=== PATIENT | male | born 1950 | race Caucasian/White ===

== ENCOUNTER 2024-08-27 12:30 | Outpatient (CLI) | payer OTHER, SELFPAY | END 2024-08-27 12:31 | disposition home or self-care (01) | PROVIDERS: Visit Provider Family Medicine | DX: I10 Essential (primary) hypertension (principal); Z12.5 Encounter for screening for malignant neoplasm of prostate | CPT/HCPCS: 80053; G0103 ==

== ENCOUNTER 2024-10-17 08:53 | Outpatient (CLI) | payer OTHER, SELFPAY ==
--- NOTE | 2024-10-17 09:15 | CRLHL7_ITS ---
For Patients: As a result of the Century Cures Act, medical imaging exams and procedure reports are released immediately into your electronic medical record. You may view this report before your referring provider. If you have questions, please contact your health care provider. INDICATION: Spinal stenosis. Urinary symptoms. COMPARISON: 01/06/2023. TECHNIQUE: Sagittal T1, T2, and STIR sequences. Axial T1 and T2 weighted sequences. FINDINGS: Normal vertebral body alignment. No fractures. No vertebral body loss of height. No spondylolisthesis. No ligamentous injury. Normal marrow signal. No suspicious osseous lesions. Normal conus terminates at L1. Congenitally short pedicles contributes to overall narrowed caliber of the spinal canal. T12-L1 L1-2: No spinal canal or neural foraminal narrowing. L2-3: Disc degeneration loss disc height. Posterior disc bulge and mild narrowing of spinal canal. No neural foraminal narrowing. L3-4: Disc degeneration loss disc height. Posterior disc bulge. Moderate narrowing of spinal canal. Mild right and moderate left neural foraminal narrowing. Mild facet arthropathy. L4-5: Disc degeneration and loss disc height. Posterior disc bulge. Mature postoperative changes of left hemilaminectomy. No narrowing of spinal canal. No impingement of the traversing S1 nerve roots. Mild narrowing of bilateral foramina. L5-S1: Posterior disc bulge. Tapered narrowing of thecal sac to the prominence of the epidural fat. No impingement of the traversing S1 nerve roots. Mild narrowing of the left neural foramen. No narrowing of the right neural foramen. Mild facet arthropathy. Normal visualized SI joints. Normal paraspinal soft tissues. IMPRESSION: 1. Normal alignment. No fractures. 2. Congenitally short pedicles 3. Lumbar spondylosis. 4. At L3-4, moderate narrowing of the spinal canal left neural foramina 5. Mild narrowing of the neural foramina at L4-5 and L5-S1 is described above. Dictated by Geovanny De Leon MD @ 10/18/2024 7:33:46 AM (Electronically Signed)
== END 2024-10-17 08:54 | disposition home or self-care (01) ==
LOC: MRI 08:55
PROVIDERS: PCP Family Medicine; Visit Provider Family Medicine
DX: M48.00 Spinal stenosis, site unspecified (principal); M47.896 Other spondylosis, lumbar region; M51.26 Other intervertebral disc displacement, lumbar region; M51.27 Other intervertebral disc displacement, lumbosacral region
CPT/HCPCS: 72148

== ENCOUNTER 2024-12-20 10:24 | Outpatient (CLI) | payer OTHER, SELFPAY | END 2024-12-20 10:25 | disposition home or self-care (01) | LOC: NFLDREF 12-21 07:55 | PROVIDERS: PCP Family Medicine; Referring Provider Family Medicine; Visit Provider Family Medicine | DX: E87.6 Hypokalemia (principal) | CPT/HCPCS: 80048 ==

== ENCOUNTER 2025-01-14 07:07 | Outpatient (CLI) | payer OTHER, SELFPAY ==
--- NOTE | 2025-01-14 08:56 | P.ANES_ITS ---
Anesthesia Charges Start Date/Time Anesthesia Start Date: 01/14/25 Anesthesia Start Time: 08:07 Stop Date/Time Anesthesia Stop Date: 01/14/25 Anesthesia Stop Time: 08:55 Summary Extremes of Age - Over 70 or under 1: TILTROTOR CREW CHIEF Coding CPT Codes CPT Codes: ANES LWR INTST NDSC NOS - 47377 ([id number]) P3 - PATIENT W/SEVERE SYS DISEASE, QK - SCRUM PRODUCT OWNER 2-4 CNCRNT ANES PROC, QX - TILTROTOR CREW CHIEF SVC W/ MD MED DIRECTION Additional Codes: Summary - Extremes of Age - Over 70 or under 1: TILTROTOR CREW CHIEF ([id number])
--- NOTE | 2025-01-14 08:56 | W.ANESCHARGE ---
Anesthesia Charges Start Date/Time Anesthesia Start Date: 01/14/25 Anesthesia Start Time: 08:07 Stop Date/Time Anesthesia Stop Date: 01/14/25 Anesthesia Stop Time: 08:55 Summary Extremes of Age - Over 70 or under 1: PERSONAL CARE HOME ADMINISTRATOR Coding CPT Codes CPT Codes: ANES LWR INTST NDSC NOS - [id number] ([id number]) P3 - PATIENT W/SEVERE SYS DISEASE, QK - PICC NURSE 2-4 CNCRNT ANES PROC, QX - PERSONAL CARE HOME ADMINISTRATOR SVC W/ MD MED DIRECTION Additional Codes: Summary - Extremes of Age - Over 70 or under 1: PERSONAL CARE HOME ADMINISTRATOR ([id number])
--- NOTE | 2025-01-14 09:05 | W.ANESCHARGE ---
Anesthesia Charges Start Date/Time Anesthesia Start Date: 01/14/25 Anesthesia Start Time: 08:07 Stop Date/Time Anesthesia Stop Date: 01/14/25 Anesthesia Stop Time: 08:55 Summary Extremes of Age - Over 70 or under 1: MDA Coding CPT Codes CPT Codes: ANES LWR INTST NDSC NOS - [id number] ([id number]) QK - ELECTRIC CLOCK MECHANIC 2-4 CNCRNT ANES PROC, QX - BAR MACHINE OPERATOR SVC W/ MD MED DIRECTION, P3 - PATIENT W/SEVERE SYS DISEASE Additional Codes: Summary - Extremes of Age - Over 70 or under 1: MDA ([id number])
== END 2025-01-14 07:08 | disposition home or self-care (01) ==
LOC: OP CLINIC 07:08
PROVIDERS: PCP Family Medicine; Visit Provider Surgery
DX: D12.2 Benign neoplasm of ascending colon (principal); D12.0 Benign neoplasm of cecum; D12.5 Benign neoplasm of sigmoid colon; D12.3 Benign neoplasm of transverse colon; K57.30 Diverticulosis of large intestine without perforation or abscess without bleeding; K64.8 Other hemorrhoids; R19.5 Other fecal abnormalities; D50.9 Iron deficiency anemia, unspecified
CPT/HCPCS: 00811; 45385; 88305; 99100; J2704

== ENCOUNTER 2025-02-27 11:16 | Outpatient (CLI) | payer OTHER, SELFPAY | END 2025-02-27 11:17 | disposition home or self-care (01) | LOC: LKVREF 11:20 | PROVIDERS: PCP Family Medicine; Visit Provider Family Medicine | DX: E83.39 Other disorders of phosphorus metabolism (principal) | CPT/HCPCS: 83735; 84100 ==

== ENCOUNTER 2025-03-07 09:28 | Outpatient (CLI) | payer OTHER, SELFPAY ==
--- NOTE | 2025-03-07 10:00 | CRLHL7_ITS ---
For Patients: As a result of the Century Cures Act, medical imaging exams and procedure reports are released immediately into your electronic medical record. You may view this report before your referring provider. If you have questions, please contact your health care provider. INDICATION: Head trauma, history of subdural hematoma, lightheadedness. TECHNIQUE: Noncontrast CT of the head with multiplanar reconstruction utilizing bone and soft tissue algorithms. COMPARISON: CT head dated 04/23/2024. FINDINGS: No acute intracranial hemorrhage. Martin-white matter differentiation is preserved. A right frontal approach ventricular catheter is unchanged in position. There has been no interval change in caliber of the enlarged supratentorial ventricles. No abnormal extra-axial fluid collection is identified. The globes are symmetric. The imaged paranasal sinuses and mastoid air cells are clear. IMPRESSION: 1. No acute intracranial abnormality. 2. Stable positioning of a right frontal approach ventricular shunt catheter with unchanged caliber of the enlarged supratentorial ventricles. Please note that all CT scans at this facility use dose modulation, iterative reconstruction, and/or weight-based dosing when appropriate to reduce radiation dose to as low as reasonably achievable. Dictated by Guanaco De Leon MD @ 03/11/2025 3:26:57 PM (Electronically Signed)
== END 2025-03-07 09:29 | disposition home or self-care (01) ==
LOC: CT 09:30
PROVIDERS: PCP Family Medicine; Visit Provider Family Medicine
DX: R42 Dizziness and giddiness (principal); S09.90XA Unspecified injury of head, initial encounter; Z98.2 Presence of cerebrospinal fluid drainage device; Z86.79 Personal history of other diseases of the circulatory system
CPT/HCPCS: 70450

== ENCOUNTER 2025-03-24 18:54 | Outpatient (CLI) | payer OTHER, SELFPAY | END 2025-03-24 18:55 | disposition home or self-care (01) | LOC: NFLDREF 03-30 03:44 | PROVIDERS: PCP Family Medicine; Referring Provider Family Medicine; Visit Provider Family Medicine | DX: R35.0 Frequency of micturition (principal); R39.15 Urgency of urination | CPT/HCPCS: 87086 ==

== ENCOUNTER 2025-04-01 09:33 | Outpatient (RCR) | payer OTHER, SELFPAY ==
--- NOTE | 2025-04-03 09:31 | PT.OPE ---
PT [facility] PT [facility] Outpatient Eval Start: 04/01/25 15:45 Freq: Status: Active Protocol: Document 04/01/25 15:47 LAURA (Rec: 04/01/25 15:48 LAURA [id number]) E-signed By Erich Nguyen DPT, MS Physical Therapy Outpatient Evaluation Insurance Information Recert Due Date 06/30/25 Insurance Name Medicare B Medical Diagnosis Dizziness and giddiness; syncope and collapse; radiculopathy, site unspecified; repeated falls; pain in right hip; other chronic pain Treating Diagnosis R hip pain, decreased R hip ROM and flexibility, imbalance, gait dysfunction deconditioning, and B LE weakness Subjective Subjective Pt is a 74 y.o male with complex recent PMH who presents to PT with a chief complaint of chronic high levels of R hip pain which has led to multiple falls. Experienced a bad fall 3 weeks ago with a FOOSH ELIAZAR with a 4th metacarpal fx and bruising on his R forehead with pt currently wearing a splint to improve ability to amb with a FWW. Previously experienced high levels of dizziness with transfers but recent medication changes have resolved dizziness. Originally had a R STANISLAW scheduled at [place] in December but delayed surgery due to several blood clots which were successfully treated. Pt hopes to have a R STANISLAW over the next 1-2 months due to severe R hip pain which limits harshad to standing and walking. Pt?s describes that he does not drink enough fluids, typically drinking <20 oz of water per day. PMH also includes LS stenosis with shooting pain from his R glute to the bottom of his foot in WBing positions. PSH of LS fusion in 1998. AGGR factors: walking, standing, extended sitting, driving, sit to stand transfers, sleeping, uneven surfaces. ALLEV factors: rest, ice. Pt arrived 18 min late and finished paperwork 25 min into today?s session. Pain Comments -05/16 R hip Current Work Status Retired Precautions Therapy Limitations/ Not Limited Systems Review Objective Functional Test LEFS: 4 Performed & Score Assessment Assessment/ Objectively, pt displays decreased R hip ROM and Impression flexibility, imbalance, gait dysfunction deconditioning , and B LE weakness. High levels of chronic R hip pain and significant R LE weakness leading to gait dysfunction and compensations with a FWW. Pt would likely benefit most from R STANISLAW surgery due to end stage R hip arthritis and high levels of pain which has led to multiple falls and significant impairment of daily activities. Resolution of dizziness sxs. Good response to seated strengthening and stretching exercises with pt unable to harshad WBing exercises due to elevated R hip pain and due to his L hand fx. Instructed pt and his to contact our orthopedics department to begin the process of R STANISLAW surgery, if pt medically cleared due to his recent cardiovascular complications. He will continue I sx management with his HEP and the current episode of care will be D/C. Primary Functional Walking, standing, extended sitting, driving, sit to Limitations stand transfers, sleeping, uneven surfaces Plan of Care Rehabilitation Excellent Potential Physical Therapy Short-term goals to be completed in 1 week: Goals 1. Pt will be independent and compliant with her HEP in preparation for future R STANISLAW surgery. MET Coordination/ Referral Source Communication With Treatment Plan/ Joint Mobilization,Manual Therapy,Neuromuscular Re-ed, Direct Interventions Therapeutic Exercises Frequency/Duration 1 visit prior to possible R STANISLAW surgery Patient Will Be Completion of LTG(s),Skills Plateau,Independent w/HEP, Discharged From Independently Progressing Therapy Evaluation Billing Untimed Code 26 Treatment Minutes Complexity Moderate Certification Information Initial 04/01/25 Certification Date Ending Certification 06/30/25 Date Provider Signature Yes Required Provider Signature POC & Medical Necessity Shows Agreement With Physician NPI Number Write NPI# Here Physician Comment/ : Change Physician Signature Please Sign/Date Here & Date Requested
== END 2025-07-30 23:59 | disposition home or self-care (01) ==
PROVIDERS: PCP Family Medicine; Visit Provider Family Medicine
DX: R42 Dizziness and giddiness (principal); R55 Syncope and collapse; M54.10 Radiculopathy, site unspecified; R29.6 Repeated falls; M25.559 Pain in unspecified hip; G89.29 Other chronic pain; Z51.89 Encounter for other specified aftercare
CPT/HCPCS: 97110; 97162

== ENCOUNTER 2025-05-23 10:15 | Outpatient (CLI) | payer OTHER, SELFPAY | END 2025-05-23 10:16 | disposition home or self-care (01) | LOC: LKVREF 10:18 | PROVIDERS: PCP Family Medicine; Visit Provider Family Medicine | DX: E11.22 Type 2 diabetes mellitus with diabetic chronic kidney disease (principal); N18.2 Chronic kidney disease, stage 2 (mild); I25.10 Atherosclerotic heart disease of native coronary artery without angina pectoris; I48.91 Unspecified atrial fibrillation; I51.3 Intracardiac thrombosis, not elsewhere classified | CPT/HCPCS: 80053 ==

== ENCOUNTER 2025-06-09 11:47 | Outpatient (CLI) | payer OTHER, SELFPAY | END 2025-06-09 11:48 | disposition home or self-care (01) | LOC: NFLDREF 06-12 12:29 | PROVIDERS: PCP Family Medicine; Referring Provider Family Medicine; Visit Provider Family Medicine | DX: E11.9 Type 2 diabetes mellitus without complications (principal) | CPT/HCPCS: 82043; 82570 ==